=== PATIENT | female | born 1935 | race Caucasian/White ===

== ENCOUNTER 2021-10-27 08:34 | Emergency (ER) | payer MEDICARE, OTHER ==
[~2021-10-27] VITALS: Ht 165.1 cm; Wt 52.0 kg
--- NOTE | 2021-10-27 08:55 | NUR ---
Pt's pain worse with sitting. Radiates down from hip to knee.
[2021-10-27] MEDS ORDERED: acetaminophen 325mg tablet PO ONE (09:05)
[2021-10-27] MEDS ORDERED: LIDOcaine 5% patch TP STA (09:29)
[2021-10-27] MEDS ORDERED: LIDO700A32 TOP (09:34)
[2021-10-27 10:01] VITALS: BP 134/76
== END 2021-10-27 10:03 | disposition home or self-care (01) ==
LOC: ER 08:34
DX: M54.50 Low back pain, unspecified (principal); M25.551 Pain in right hip; Z87.440 Personal history of urinary (tract) infections; Z72.89 Other problems related to lifestyle; Z79.899 Other long term (current) drug therapy
CPT/HCPCS: 72170; 99283